=== PATIENT | female | born 1995 | race Caucasian/White ===

== ENCOUNTER 2024-09-19 09:07 | Outpatient (AMB) | payer OTHER, SELFPAY ==
--- NOTE | 2024-09-19 09:29 | AM.OFFWIN_ITS ---
Intake Vital Signs 09/19/24 09:34 Height 5 ft 1 in Weight 125 lb BMI 23.6 BP 102/60 Blood Pressure Location Rt brachial Position Sitting Respiration 16 Pulse 50 Pulse Source Pulse Oximeter Temp 98.8 F Temp Source Oral Pulse Oximetry (%) 95 Oxygen Delivery Method Room Air Intake Visit Reasons: EP-strep throat Intake Note: Pt is here today c/o sore throat x3 days Allergies No Known Allergies Allergy (Verified 09/19/24 09:33) HPI EP-strep throat HPI Details This is a 28-year-old female patient who presents to the walk-in clinic with report of sore throat for the last 3 days. Denies any other sick or upper respiratory symptoms. States she felt some chills/body ache a few days ago, h owever nothing since then. No known exposure to sick contacts. Able to tolerate food and drink. Review of Systems Const All systems reviewed & are unremarkable except as noted in HPI and below Physical Exam Vital Signs: Last Vital Signs Temp 98.8 F 09/19/24 09:34 Pulse 50 09/19/24 09:34 Resp 16 09/19/24 09:34 BP 102/60 09/19/24 09:34 Pulse Ox 95 09/19/24 09:34 Oxygen Delivery Method Room Air 09/19/24 09:34 BMI result Body Mass Index 23.6 Const General: cooperative, healthy appearing and no acute distress Limitations: no limitations HEENT Head: Yes normal to inspection Ears: hearing grossly normal bilaterally General nose exam: Normal external nose present Face and sinus: Yes normal facial exam Mouth: Normal oral and palatal mucosa present Throat: Yes posterior oropharynx normal and Yes tonsils normal Neck Neck: Yes no lymphadenopathy Resp Effort & Inspection: normal respiratory effort Skin General skin exam: no rashes or lesions noted Psych Appearance: grossly normal Mental Status: mental status grossly normal Speech and movement: Normal speech and movement present Results AMB Rapid Strep AMB Rapid Strep Negative Last Edit by Daniella Pike CMA on 09/19/24 09:46 Assessment & Plan Assessment & Plan (1) Viral pharyngitis: Code(s): J02.9 - Acute pharyngitis, unspecified Plan: Likely a viral pharyngitis. Rapid strep was negative. Tonsils/posterior oropharynx appear normal, without any erythema or exudate. Advised conservative measures with [id number] lozenges/sprays, increased fluids, Tylenol/Motrin as needed. If she develops any worsening symptoms or she does not improve with time/conservative measures discussed, she can return to the clinic for further evaluation. Patient verbalizes understanding and agrees to plan. Orders: Orders AMB Rapid Strep Screen Today Z13.9 - Encounter for screening, unspecified Coding Level of Care Code Est Pt Level 3 (92993) Diagnoses Viral pharyngitis J02.9
[2024-09-19 09:34] VITALS: BP 102/60; PULSE 50; RESP 16; TEMP 37.1; O2SAT 95; BMI 23.6
== END 2024-09-19 09:52 | disposition home or self-care (01) ==
PROVIDERS: Visit Provider Nurse Practitioner Family
DX: J02.9 Acute pharyngitis, unspecified (principal); Z13.9 Encounter for screening, unspecified

== ENCOUNTER → 2024-09-19 09:07 | Outpatient (BNVA) | payer OTHER, SELFPAY | PROVIDERS: Visit Provider Nurse Practitioner Family | DX: J02.9 Acute pharyngitis, unspecified (principal) | CPT/HCPCS: 87880 ==

== ENCOUNTER 2024-10-10 15:31 | Outpatient (REF) | payer OTHER, SELFPAY ==
--- NOTE | ~2024-10-10 | XR_ITS ---
EXAMINATION: XR PELVIS CLINICAL INFORMATION: PAIN COMPARISON: None available. TECHNIQUE: AP view of the pelvis. FINDINGS: No fracture. Hip joint spaces are maintained. Alignment is anatomic. Sacroiliac joints and pubic symphysis are normal. No abnormal soft tissue calcifications. XR/XR pelvis 1-2V IMPRESSION: Normal pelvis. Electronically signed by: Sae Marie MD 10/10/2024 04:18 PM EDT
== END 2024-10-10 15:32 | disposition home or self-care (01) ==
LOC: HO.XRAY 15:31
PROVIDERS: Visit Provider Chiropractor
DX: R10.2 Pelvic and perineal pain (principal)
CPT/HCPCS: 72170

== ENCOUNTER → 2024-10-10 15:40 | Outpatient (BNV) | payer OTHER, SELFPAY | PROVIDERS: Visit Provider Radiology Diagnostic Radiology | DX: R10.2 Pelvic and perineal pain (principal) | CPT/HCPCS: 72170 ==